=== PATIENT | female | born 1995 | race Caucasian/White ===

== ENCOUNTER 2018-07-30 14:33 | Emergency (ER) | payer BC ==
[2018-07-30 14:55] VITALS: RESP 18
[2018-07-30] MEDS ORDERED: SODIUM CHLORIDE 0.9% 1,000 ML IV STA ×2 (15:08)
[2018-07-30] MEDS ORDERED: MORPHINE SULFATE 4 MG/ML SYRINGE IV STA (15:08)
[2018-07-30] MEDS ORDERED: PANTOPRAZOLE 40 MG/10 ML VIAL IVP STA (15:08)
[2018-07-30] MEDS ORDERED: ONDANSETRON 4 MG/2 ML VIAL IVP STA (15:08)
[2018-07-30] MEDS ORDERED: KETOROLAC 30 MG/ML 1 ML VIAL IVP STA (15:08)
--- NOTE | 2018-07-30 15:13 | ED ---
Abdominal Pain HPI - General Source: patient, RN notes reviewed, old records reviewed Mode of arrival: ambulatory Limitations: no limitations <Tabatha Snow - Last Filed: 07/30/18 16:04> <Yusef Kaiser - Last Filed: 07/30/18 19:30> - General Chief Complaint: Abdominal Pain Stated Complaint: post op abd pain Time Seen by Provider: 07/30/18 14:57 - History of Present Illness Initial Comments: This Patient is a 23-year-old female presents emergency department today with chief complaint of diffuse abdominal pain, fevers and chills. She hasn't significant past medical history of recent cholecystectomy on July 08. She subsequently developed sepsis after a bile leak within her abdomen. Patient had another surgery to drain a intra-abdominal abscess, and was admitted to the ICU at [facility] for 10 days. She is discharged from the hospital one week ago. Patient states that since she returned home she's been feeling increasingly worse. Patient states the pain was severe today that she felt she needed to be seen probably. Her surgeon was Dr. Dre Montejo. Patient states that she has had intermittent fevers and chills. She was discharged on Cipro and Flagyl and has been taking the antibiotics correctly. ( Tabatha Snow) - Related Data Home Medications Medication Instructions Recorded Confirmed Ciprofloxacin HCl [Cipro] 500 mg PO BID 07/30/18 07/30/18 Hydrocodone/Acetaminophen [[place] 1 tab PO Q4H PRN 07/30/18 07/30/18 10-325] Levothyroxine Sodium [Synthroid] 50 mcg PO MOWEFR 07/30/18 07/30/18 metroNIDAZOLE [Flagyl] 500 mg PO Q8H 07/30/18 07/30/18 Allergies Allergy/AdvReac Type Severity Reaction Status Date / Time topiramate [From Topamax] Allergy Rash/Hives Verified 07/30/18 15:18 cefixime [From Suprax] AdvReac Unknown Verified 07/30/18 15:18 Childhood morphine AdvReac Unknown Verified 07/30/18 15:18 piperacillin [From Zosyn] AdvReac Rash/Hives Verified 07/30/18 15:18 tazobactam [From Zosyn] AdvReac Rash/Hives Verified 07/30/18 15:18 Review of Systems ROS Other: All systems not noted in ROS Statement are negative. <Tabatha Snow - Last Filed: 07/30/18 16:04> ROS Other: All systems not noted in ROS Statement are negative. <Yusef Kaiser - Last Filed: 07/30/18 19:30> ROS Statement: Those systems with pertinent positive or pertinent negative responses have been documented in the HPI. Past Medical History Past Medical History: Thyroid Disorder Additional Past Medical History / Comment(s): ICP during , Cece's , preeclampsia History of Any Multi-Drug Resistant Organisms: None Reported Past Surgical History: Section, Cholecystectomy Additional Past Surgical History / Comment(s): bile duct stent, ERCP Past Psychological History: No Psychological Hx Reported Smoking Status: Never smoker Past Alcohol Use History: None Reported Past Drug Use History: None Reported <Tabatha Snow - Last Filed: 07/30/18 16:04> General Exam Limitations: no limitations General appearance: alert, in no apparent distress Head exam: Present: atraumatic, normocephalic, normal inspection Eye exam: Present: normal appearance, PERRL, EOMI. Absent: scleral icterus, conjunctival injection, periorbital swelling ENT exam: Present: normal exam, mucous membranes moist Neck exam: Present: normal inspection. Absent: tenderness, meningismus, lymphadenopathy Respiratory exam: Present: normal lung sounds bilaterally. Absent: respiratory distress, wheezes, rales, rhonchi, stridor Cardiovascular Exam: Present: regular rate, normal rhythm, normal heart sounds. Absent: systolic murmur, diastolic murmur, rubs, gallop, clicks GI/Abdominal exam: Present: tenderness (Has a diffuse abdominal resources left upper quadrant.), normal bowel sounds. Absent: soft, distended, guarding, rebound, rigid Back exam: Present: normal inspection Neurological exam: Present: alert, oriented X3, CN II-XII intact Psychiatric exam: Present: normal affect, normal mood Skin exam: Present: warm, dry, intact, normal color. Absent: rash <Tabatha Snow - Last Filed: 07/30/18 16:04> <Yusef Kaiser - Last Filed: 07/30/18 19:30> - General Exam Comments Initial Comments: 23-year-old female. Alert and oriented. (Tabatha Snow) Course <Tabatha Snow - Last Filed: 07/30/18 16:04> <Yusef Kaiser - Last Filed: 07/30/18 19:30> Vital Signs 07/30/18 07/30/18 14:51 17:35 Temperature 98.1 F 98.0 F Pulse Rate 118 H 101 H Respiratory 18 18 Rate Blood Pressure 134/87 131/80 O2 Sat by Pulse 100 98 Oximetry - Reevaluation(s) Reevaluation #1: 07/30/18 19:03 Patient reevaluated by myself, Dr. Kaiser. Patient resting comfortably in bed. Mild tenderness left upper quadrant. No guarding. No rigidity or rebound. Patient and family updated on findings. Patient does request to be discharged tonight. 07/30/18 19:26 Case was discussed in detail with Dr. Harris who is familiar with this patient. Discussion was had regarding patient's symptoms and exam and laboratory daily and ct findings. He does feel comfortable with outpatient discharge home and recommend she does still follow up with them in the office following completion of antibiotics. Patient states she has 3 more days left. ( Yusef Kaiser) Medical Decision Making - Lab Data Result diagrams: 07/30/18 15:30 - Radiology Data Radiology results: report reviewed <Tabatha Snow - Last Filed: 07/30/18 16:04> - Lab Data Result diagrams: 07/30/18 15:30 07/30/18 15:30 - Radiology Data Radiology results: report reviewed (Computed tomography scan of the abdomen pelvis shows scant right upper quadrant fluid/gas focus between the right kidney and liver. Nonspecific. Nonspecific pancreatic parenchymal indistinctness.) <Yusef Kaiser - Last Filed: 07/30/18 19:30> - Lab Data Lab Results 07/30/18 07/30/18 07/30/18 Range/Units 15:30 15:30 15:30 WBC 10.8 H (3.8-10.6) k/uL RBC 4.85 (3.80-5.40) m/uL Hgb 12.3 (11.4-16.0) gm/dL Hct 39.6 (34.0-46.0) % MCV 81.7 (80.0-100.0) fL MCH 25.4 (25.0-35.0) pg MCHC 31.1 (31.0-37.0) g/dL RDW 14.6 (11.5-15.5) % Plt Count 894 H (150-450) k/uL Neutrophils % 74 % Lymphocytes % 18 % Monocytes % 4 % Eosinophils % 3 % Basophils % 1 % Neutrophils # 7.9 H (1.3-7.7) k/uL Lymphocytes # 1.9 (1.0-4.8) k/uL Monocytes # 0.5 (0-1.0) k/uL Eosinophils # 0.3 (0-0.7) k/uL Basophils # 0.1 (0-0.2) k/uL Hypochromasia Slight PT 10.5 (9.0-12.0) sec INR 1.1 (<1.2) APTT 25.1 (22.0-30.0) sec Sodium 139 (137-145) mmol/L Potassium 4.9 (3.5-5.1) mmol/L Chloride 104 (98-107) mmol/L Carbon Dioxide 23 (22-30) mmol/L Anion Gap 12 mmol/L BUN 11 (7-17) mg/dL Creatinine 0.55 (0.52-1.04) mg/dL Est GFR (CKD-EPI)AfAm >90 (>60 ml/min/1.73 sqM) Est GFR (CKD-EPI)NonAf >90 (>60 ml/min/1.73 sqM) Glucose 108 H (74-99) mg/dL Plasma Lactic Acid [place] (0.7-2.0) mmol/L Calcium 10.1 (8.4-10.2) mg/dL Total Bilirubin 0.4 (0.2-1.3) mg/dL AST 39 H (14-36) U/L ALT 23 (9-52) U/L Alkaline Phosphatase 93 (38-126) U/L Troponin I (0.000-0.034) ng/mL Total Protein 8.0 (6.3-8.2) g/dL Albumin 4.2 (3.5-5.0) g/dL Amylase 152 H (30-110) U/L Lipase 87 (23-300) U/L 07/30/18 07/30/18 Range/Units 15:30 15:30 WBC (3.8-10.6) k/uL RBC (3.80-5.40) m/uL Hgb (11.4-16.0) gm/dL Hct (34.0-46.0) % MCV (80.0-100.0) fL MCH (25.0-35.0) pg MCHC (31.0-37.0) g/dL RDW (11.5-15.5) % Plt Count (150-450) k/uL Neutrophils % % Lymphocytes % % Monocytes % % Eosinophils % % Basophils % % Neutrophils # (1.3-7.7) k/uL Lymphocytes # (1.0-4.8) k/uL Monocytes # (0-1.0) k/uL Eosinophils # (0-0.7) k/uL Basophils # (0-0.2) k/uL Hypochromasia PT (9.0-12.0) sec INR (<1.2) APTT (22.0-30.0) sec Sodium (137-145) mmol/L Potassium (3.5-5.1) mmol/L Chloride (98-107) mmol/L Carbon Dioxide (22-30) mmol/L Anion Gap mmol/L BUN (7-17) mg/dL Creatinine (0.52-1.04) mg/dL Est GFR (CKD-EPI)AfAm (>60 ml/min/1.73 sqM) Est GFR (CKD-EPI)NonAf (>60 ml/min/1.73 sqM) Glucose (74-99) mg/dL Plasma Lactic Acid [place] 1.0 (0.7-2.0) mmol/L Calcium (8.4-10.2) mg/dL Total Bilirubin (0.2-1.3) mg/dL AST (14-36) U/L ALT (9-52) U/L Alkaline Phosphatase (38-126) U/L Troponin I <0.012 (0.000-0.034) ng/mL Total Protein (6.3-8.2) g/dL Albumin (3.5-5.0) g/dL Amylase (30-110) U/L Lipase (23-300) U/L 07/30/18 16:04 EKG shows sinus rhythm with sinus arrhythmia. Cannot rule out anterior infarct term. Abnormal EKG noted. The jugular 89 bpm. Pulse 126 no seconds. QRS duration 72 ms. QT QTc is 360/438 ms. No evidence of ST elevation or T-wave inversion. (Tabatha Snow) Disposition <Tabatha Snow - Last Filed: 07/30/18 16:04> Is patient prescribed a controlled substance at d/c from ED?: No Time of Disposition: 19:30 <Yusef Kaiser - Last Filed: 07/30/18 19:30> Clinical Impression: Abdominal pain Disposition: HOME SELF-CARE Condition: Stable Instructions: Abdominal Pain (ED) Additional Instructions: Please follow-up with your surgeon in the next couple days for recheck. Return for increased pain, fevers, persistent vomiting, worsening or changing symptoms or other concerns. Continue antibiotics. Referrals: Leia Gramajo DO [Primary Care Provider] - 1-2 days
[2018-07-30] MEDS ORDERED: HYDROmorphone 0.5 MG/0.5 ML SYRINGE IVP STA (15:33)
[2018-07-30 15:51] LABS: Basophils # (A) 0.1 k/uL (0-0.2); Basophils % (A) 1 %; Eosinophils # (A) 0.3 k/uL (0-0.7); Eosinophils % (A) 3 %; HCT 39.6 % (34.0-46.0); HGB 12.3 gm/dL (11.4-16.0); Hypochromasia Slight; Lymphocytes # (A) 1.9 k/uL (1.0-4.8); Lymphocytes % (A) 18 %; MCH 25.4 pg (25.0-35.0); MCHC 31.1 g/dL (31.0-37.0); MCV 81.7 fL (80.0-100.0); Mean Platelet Volume 6.3; Monocytes # (A) 0.5 k/uL (0-1.0); Monocytes % (A) 4 %; Neutrophils # (A) 7.9 k/uL (1.3-7.7); Neutrophils % (A) 74 %; Platelet Count 894 k/uL (150-450); RBC 4.85 m/uL (3.80-5.40); RDW 14.6 % (11.5-15.5); WBC 10.8 k/uL (3.8-10.6)
[2018-07-30 16:01] LABS: INR 1.1 (<1.2); Partial Thromboplastin Time 25.1 sec (22.0-30.0); Prothrombin Time 10.5 sec (9.0-12.0)
[2018-07-30 16:02] LABS: ALT 23 U/L (9-52); AST 39 U/L (14-36); Albumin 4.2 g/dL (3.5-5.0); Alkaline Phosphatase 93 U/L (38-126); Amylase 152 U/L (30-110); Anion Gap 12 mmol/L; Blood Urea Nitrogen 11 mg/dL (7-17); Calcium 10.1 mg/dL (8.4-10.2); Carbon Dioxide 23 mmol/L (22-30); Chloride 104 mmol/L (98-107); Glucose 108 mg/dL (74-99); Lipase 87 U/L (23-300); Potassium 4.9 mmol/L (3.5-5.1); Sodium 139 mmol/L (137-145); Total Bilirubin 0.4 mg/dL (0.2-1.3)
--- NOTE | 2018-07-30 18:23 | CT ---
EXAMINATION TYPE: CT abdomen pelvis w con DATE OF EXAM: 07/30/2018 COMPARISON: None. HISTORY: Recent abscess drainage after cholecystectomy and bile duct stents. Abdominal pain. CT DLP: 1196 mGycm Automated exposure control for dose reduction was used. TECHNIQUE: Helical acquisition of images was performed from the lung bases through the pelvis. CONTRAST: Performed without Oral Contrast and with IV Contrast, patient injected with 100 mL of Isovu e M300. FINDINGS: IV contrast was delivered. Within the limits of nonutilization of oral contrast distention of the hol low viscera, the following observations are made: LUNG BASES: No significant abnormality is appreciated. LIVER: No focal liver lesions. However, juxtaposed between the right kidney and the liver is a small crescent of fluid attenuation and a 1 cm in diameter gas bubble. BILIARY / PANCREAS: Extrahepatic biliary tree catheter is in place. No extrahepatic or intrahepatic b iliary tree dilation. No pancreatic ductal dilation. The pancreatic parenchyma is mildly ill-defined and although there are no focal attenuation defects, there is loss of the normal acinar pattern of th e pancreatic parenchyma. This can be seen with increased tenderness, request clinical consideration o f pancreatitis. No drainable fluid collections. PERITONEAL CAVITY: No other candidates for abnormal fluid or gas collections. SPLEEN: No significant abnormality is seen. ADRENALS: No significant abnormality is seen. KIDNEYS: No significant abnormality is seen. ABDOMINAL ADENOPATHY: None visualized REPRODUCTIVE ORGANS: No significant abnormality is seen URINARY BLADDER: No significant abnormality is seen. PELVIC ADENOPATHY: None visualized. OSSEOUS STRUCTURES: No significant abnormality is seen. BOWEL: No significant abnormality is seen. VASCULATURE: No acute findings. OTHER: There are a few scattered nonspecific areas of edematous reticulation within the abdomen and the pelvis, and including the omentum. Entirely nonspecific, these are of doubtful clinical significa nce. IMPRESSION: 1. SCANT RIGHT UPPER QUADRANT FLUID/GAS FOCUS JUXTAPOSED BETWEEN THE RIGHT KIDNEY AND LIVER, A NONSP ECIFIC FINDING. 2. NONSPECIFIC HEPATIC PARENCHYMAL INDISTINCTNESS, REQUEST CLINICAL CONSIDERATION OF PANCREATITIS.
[2018-07-30] MEDS ORDERED: HYDROmorphone 1 MG/ML 1 ML SYRINGE IVP STA (19:18)
[2018-07-30 20:01] VITALS: BP 142/85; PULSE 95; TEMP 98.8
== END 2018-07-30 20:20 | disposition home or self-care (01) ==
LOC: EC 14:33
DX: G89.18 Other acute postprocedural pain (principal); R10.12 Left upper quadrant pain; R50.9 Fever, unspecified; E07.9 Disorder of thyroid, unspecified; Z90.49 Acquired absence of other specified parts of digestive tract; Z79.899 Other long term (current) drug therapy; Z88.8 Allergy status to other drugs, medicaments and biological substances; Z88.1 Allergy status to other antibiotic agents; Z88.5 Allergy status to narcotic agent; Z88.0 Allergy status to penicillin; Z53.8 Procedure and treatment not carried out for other reasons
CPT/HCPCS: 36415; 93005; 80053; 82150; 83605; 83690; 84484; 85025; 85610; 85730; 87040; 74177; 99285; 96374; 96375 ×2; 96376; 96361 ×5; J2405; J1170 ×2; C9113; Q9967